=== PATIENT | female | born 1990 | race Caucasian/White ===

== ENCOUNTER 2017-05-08 11:56 | Inpatient (IN) | payer OTHER ==
[~2017-05-08] VITALS: Ht 157.5 cm; Wt 99.0 kg
[~2017-05-08 11:56] MED LIST: IBUP-1542 PO; PREN-39 PO
[2017-05-08 12:00] VITALS: Ht 157.5 cm; Wt 99.0 kg
[2017-05-08 12:05] VITALS: BP 138/83; PULSE 95; RESP 18
[2017-05-08 13:23] LABS: ADD UMIC YES; UR BILIRUBIN (Dip) 1+ (NEGATIVE); UR BLOOD (Dip) 3+ (NEGATIVE); UR CLARITY SLIGHTLY CLOUDY (CLEAR); UR COLOR YELLOW (YELLOW); UR GLUCOSE (Dip) NEGATIVE (NEGATIVE); UR KETONES (Dip) NEGATIVE (NEGATIVE); UR LEUKOCYTE ESTERASE (Dip) 1+ (NEGATIVE); UR NITRITE (Dip) NEGATIVE (NEGATIVE); UR TOTAL PROTEIN (Dip) 2+ (NEGATIVE); UR UROBILINOGEN (Dip) 1.0 E.U./dL (0.1-1.0)
--- NOTE | 2017-05-08 13:31 | RADRPT ---
PROCEDURE: US OB biophysical profile. CLINICAL INDICATION: decreased movements, vaginal bleeding TECHNIQUE: Multiple sonographic images of the pelvis were obtained. The images were reviewed on a PACS workstation. COMPARISON: No prior studies are available for comparison. FINDINGS: There is a single viable intrauterine gestation. Cardiac activity is present with 148 beats per min resighini. There is a vertex presentation. The placenta is anterior. There is no evidence of placental abruption. There is a normal amount of amniotic fluid with an BRAYAN = 12.2 cm. Biophysical profile: movement 2/2 tone 2/2. breathing 2/2 BRAYAN 2/2 Total 06/30 RPTAT: AA . IMPRESSION: Normal biophysical profile. . .Fabrice Wright MD, Date Time Electronically viewed and signed by .Fabrice Wright MD, MD on 05/08/2017 13:30 .S/
[2017-05-08 13:43] LABS: UR BACTERIA MODERATE; URINE RBCS >50 /HPF (0)
[2017-05-08 13:52] LABS: ICTOTEST NEGATIVE (NEGATIVE)
[2017-05-08] MEDS ORDERED: METHYLERGONOVINE 0.2 MG INJ IM PRN (14:30)
[2017-05-08] MEDS ORDERED: OXYTOCIN 30 UNITS/LR 500 ML IV PRN (14:30)
[2017-05-08] MEDS ORDERED: BUTORPHANOL 2 MG INJ IV PRN ×2 (14:30)
[2017-05-08] MEDS ORDERED: CARBOPROST 250 MCG INJ IM PRN (14:30)
[2017-05-08] MEDS ORDERED: LIDOCAINE 1% (MPF) 30 ML INJ INJ PRN (14:30)
[2017-05-08] MEDS ORDERED: OXYTOCIN 30 UNITS/LR 500 ML IV SCH ×3 (14:30→21:00)
[2017-05-08] MEDS ORDERED: LACTATED RINGER'S 1,000 ML IV PRN (14:30)
[2017-05-08] MEDS ORDERED: MISOPROSTOL 200 MCG TAB PR PRN (14:30)
[2017-05-08] MEDS: LACTATED RINGER'S 1,000 ML IV SCH ×2 (15:00→20:00)
[2017-05-08 15:27] LABS: ADD SCAN DIFF NO
[2017-05-08 15:29] LABS: BASOPHILS % 0.2 % (0.0-2.0); EOSINOPHILS % 0.1 % (0.0-7.0); HEMATOCRIT 37.6 % (37.0-47.0); HEMOGLOBIN 12.4 g/dl (12.0-16.0); LYMPHOCYTES # 2.4 10^3/ul (0.8-2.9); LYMPHOCYTES % 16.4 % (15.0-51.0); MEAN CORPUSCULAR HEMOGLOBIN 27.9 pg (29.0-33.0); MEAN CORPUSCULAR VOLUME 84.7 fl (82.0-101.0); MEAN PLATELET VOLUME 12.3 fl (7.4-10.4); MONOCYTE # 0.8 10^3/ul (0.3-0.9); MONOCYTES % 5.3 % (0.0-11.0); NEUTROPHIL # 11.2 10^3/ul (1.6-7.5); NEUTROPHILS % 77.3 % (39.0-77.0); PLATELET COUNT 248 10^3/UL (140-415); RED BLOOD COUNT 4.44 10^6/ul (4.20-5.40); RED CELL DISTRIBUTION WIDTH 15.4 % (11.5-14.5); WHITE BLOOD COUNT 14.5 10^3/ul (4.8-10.8)
[2017-05-08 15:46] LABS: INR 0.96; PROTIME 12.8 Sec (12.2-14.2)
[2017-05-08 15:47] LABS: PARTIAL THROMBOPLASTIN TIME 27.7 Sec (25.0-35.0)
[2017-05-08] MEDS ORDERED: FENTAnyl 2MCG/ML-ROPIV 0.2% 100 ML BAG EPI SCH (19:00)
[2017-05-08] MEDS ORDERED: ONDANSETRON 4 MG INJ IV PRN (19:00)
[2017-05-08] MEDS ORDERED: NALOXONE (0.4 MG/ML) INJ IV PRN (19:00)
[2017-05-08] MEDS ORDERED: DIPHENHYDRAMINE 50 MG INJ IV PRN (19:00)
[2017-05-08] MEDS ORDERED: ACETAMINOPHEN 325 MG TAB PO PRN (21:00)
--- NOTE | 2017-05-09 02:08 | DELSUM ---
Delivery Summary A-C Datetime Report Generated by CPN: 05/09/2017 02:08 DELIVERY PERSONNEL Prosthetic Technician: Long, Sandra MATERNAL INFORMATION Delivery Anesthesia: Epidural Medications in Delivery: OXYTOCIN 30UNITS IN 500ML Estimated Blood Loss (ml): 175 Placenta Cultured: No Maternal Complications: None LABOR SUMMARY EDC: 05/23/2017 00:00 No. Babies in Womb: 1 Attempted: No Labor Anesthesia: Epidural LABOR INFORMATION Reason for Induction: Not Applicable Onset of Labor: 05/08/2017 03:00 Cervical Ripening Agents: Other Cervical Ripening Agents: Other Oxytocin: N/A Group B Beta Strep: Negative Antibiotics # of Doses: 0 Steroids Given: None Reason Steroids Not Administered: Not Applicable MEMBRANES Membranes Rupture Method: Artificial Rupture of Membranes: 05/08/2017 19:38 Length of Rupture (hr): 5.98 Amniotic Fluid Color: Clear Amniotic Fluid Amount: Moderate Amniotic Fluid Odor: None STAGES OF LABOR Stage 3 hr: 0 Stage 3 min: 8 Total Time in Labor hr: 22 Total Time in Labor min: 45 VAGINAL DELIVERY Episiotomy: None Laceration Extension: N/A Laceration Type: None Laceration Repair: No Initial Vag Sponge Count: 10 Final Vag Sponge Count: 10 Initial Vag Sharps Count: 1 Final Vag Sharps Count: 1 Sponge Count Correct: Yes Sharps Count Correct: Yes BABY A INFORMATION Delivery Date/Time: 05/09/2017 01:37 Method of Delivery: Vaginal Born in Route : No : N/A Forceps: N/A Vacuum Extraction: N/A Shoulder Dystocia : N/A SHOULDER DYSTOCIA BABY A Delivery Date/Time: 05/09/2017 01:37 PRESENTATION/POSITION BABY A Presentation: Cephalic Presentation: Cephalic Cephalic Presentation: Vertex Vertex Position: Left Occipital Anterior Breech Presentation: N/A PLACENTA INFORMATION BABY A Placenta Delivery Time : 05/09/2017 01:45 Placenta Method of Delivery: Spontaneous Placenta Status: Delivered SCORES BABY A Heart Rate 1 min: >100 bpm Resp Effort 1 min: Good Cry Reflex Irritability 1 min: Cough/Sneeze/Pulls Away Muscle Tone 1 min: Active Motion Color 1 min: Blue/Pale Resuscitation Effort 1 min: Tactile Stimulation SCORE 1 MIN: 8 Heart Rate 5 min: >100 bpm Resp Effort 5 min: Good Cry Reflex Irritability 5 min: Cough/Sneeze/Pulls Away Muscle Tone 5 min: Active Motion Color 5 min: Body Flowella, Extremit Blue Resuscitation Effort 5 min: Tactile Stimulation SCORE 5 MIN: 9 INFANT INFORMATION BABY A Gestational Age at Delivery: 38.0 Gestational Status: Early Term- 37- 38.6 Weeks Outcome : Liveborn Condition : Stable Sex: Male IDENTIFICATION/MEDS BABY A ID Band Number: [id number] ID Band Location: Right Leg; Left Arm Sensor Applied: Yes Sensor Number: [id number] Sensor Location : Cord Clamp Vitamin K Given : Not Given Erythromycin Given: Not Given WEIGHT/LENGTH BABY A Birthweight (gm): 3485 Infant Weight (lb): 7 Weight (oz): 11 Infant Length (in): 20.00 Length (cm): 50.80 CORD INFORMATION BABY A No. Cord Vessels: 3 Nuchal Cord : Around Neck x1, Loose Cord Blood Taken: Yes Infant Suction: Mouth; Nose ASSESSMENT BABY A Complications: None Physical Findings at Delivery: Within Normal Limits; Other Physical Findings- Other: SKIN TEAR ON LEFT WRIST AND TAG ON LEFT HAND Respirations: Appears Normal Infant Care By: MEAGAN SHEIKH RN CHARGE Transferred To: Remains with Mother
--- NOTE | 2017-05-09 02:10 | HP ---
Date/Time of Note Date/Time of Note DATE: 05/09/17 TIME: 02:08 OB - History Hx of Present Free Text/Dictation iup 37+ in labor. no PMH no psh : 5 Para: 4 Care: Good Care Ultrasounds: Normal mid trimester US Obstetrical Complications: None Medical Complications: None Past Family/Social History * Past Medical, Surgical, Family and Obstetric Histories reviewed from chart. GBS Status: Negative OB Admission Exam Vital Signs Vital Signs Vital Signs Date Time Temp Pulse Resp B/P Pulse Ox O2 Delivery O2 Flow Rate FiO2 05/08/17 12:05 98.5 95 18 138/83 Room Air Last 72 hours Lab Results CBC & BMP 05/08/17 14:45 OB Assessment/Plan Reason for admission: active labor Plan: Expectant Management YVETTE LOVELACE MD May 09, 2017 02:10
--- NOTE | 2017-05-09 02:11 | LDN ---
Date/Time of Note Date/Time of Note DATE: 05/09/17 TIME: 02:10 Delivery Summary Weeks of Gestation 37+ Placenta Delivered: Spontaneously Meconium: none Episiotomy: No Anesthesia type: Epidural Sponge & Needle done & correct: Yes All needle counts correct: Yes Any foreign bodies felt in the: No Problems: Infant Delivery Information Suctioning Nose & mouth suctioned at kranthi: Yes Umbilical Cord Umbilical cord with: 3 Vessels Cord presentations: nuchal cord Cord Blood was obtained: Yes YVETTE LOVELACE MD May 09, 2017 02:11
[2017-05-09 04:15] VITALS: BP 121/70; PULSE 98; RESP 19
[2017-05-09] MEDS ORDERED: MISOPROSTOL 200 MCG TAB PR PRN (05:00)
[2017-05-09] MEDS ORDERED: DIPHENHYDRAMINE 25 MG CAP PO PRN (05:00)
[2017-05-09] MEDS ORDERED: CARBOPROST 250 MCG INJ IM PRN (05:00)
[2017-05-09] MEDS: ACETAMINOPHEN/CODEINE #3 TAB PO PRN ×3 (05:00→14:10)
[2017-05-09] MEDS ORDERED: OXYTOCIN 30 UNITS/LR 500 ML IV PRN (05:00)
[2017-05-09] MEDS ORDERED: METHYLERGONOVINE 0.2 MG INJ IM PRN (05:00)
[2017-05-09] MEDS ORDERED: BENZOCAINE 20% 56 ML SPRAY TOP PRN (05:00)
[2017-05-09] MEDS ORDERED: DIBUCAINE 1% 30 GM OINT PR PRN (05:00)
[2017-05-09] MEDS ORDERED: WITCH HAZEL/GLYCERIN PAD PR PRN (05:00)
[2017-05-09] MEDS ORDERED: LANOLIN 7 GM TUBE TOP PRN (05:00)
[2017-05-09] MEDS: OXYTOCIN 30 UNITS/LR 500 ML IV SCH ×2 (05:06→08:39)
[2017-05-09] MEDS: IBUPROFEN 600 MG TAB PO SCH ×4 (05:59→23:56)
[2017-05-09] MEDS: LACTATED RINGER'S 1,000 ML IV* SCH ×2 (06:36→12:13)
[2017-05-09 08:30] VITALS: BP 107/61; PULSE 80; RESP 18
[2017-05-09] MEDS: SENNA/DOCUSATE NA (8.6MG/50MG) TAB PO SCH ×2 (11:22→21:01)
[2017-05-09 16:36] VITALS: BP 135/78; PULSE 87; RESP 19
[2017-05-09 19:45] VITALS: BP 141/84; PULSE 85; RESP 20
[2017-05-10] VITALS: BP 126/57; PULSE 78; RESP 18
[2017-05-10 04:00] VITALS: BP 119/73; PULSE 82; RESP 18
[2017-05-10] MEDS: IBUPROFEN 600 MG TAB PO SCH ×4 (05:39→23:43)
[2017-05-10] MEDS: SENNA/DOCUSATE NA (8.6MG/50MG) TAB PO SCH ×2 (08:10→21:16)
[2017-05-10 08:30] VITALS: BP 127/79; PULSE 83; RESP 18
--- NOTE | 2017-05-10 09:03 | QN ---
Documentation Comment PPD#1- Laborist Rounding Note Pt doing well. Mary POs, ambulating and voiding w/o difficulty. Bottlefeeding VS 98.4 119/73 82 18 Gen: well appearing, NAD CV: RRR, nl s1s2 Resp: CTAB Abd: soft, NT, FF at umbilicus Alie: pad w/o stain (recently changed) Ext: symmetric, trace BLE edema, nontender Labs: Admission Hgb 12.4 -> EBL 175ml -> PPD#1 Hgb pending A/P: PPD#1 progressing towards milestones -continue routine care -f/up CBC -anticipate d/c home PPD#2 -will need to discuss binding breasts prior to d/c home if desires bottlefeeding only MICHAEL KATE MD May 10, 2017 09:03
[2017-05-10] MEDS: ACETAMINOPHEN/CODEINE #3 TAB PO PRN (16:06)
[2017-05-10 16:39] VITALS: BP 132/90; PULSE 81; RESP 19
[2017-05-10 19:45] VITALS: BP 143/83; PULSE 88; RESP 18
[2017-05-11 04:30] VITALS: BP 120/75; PULSE 86; RESP 18
[2017-05-11] MEDS: IBUPROFEN 600 MG TAB PO SCH ×2 (05:49→11:57)
[2017-05-11 07:44] VITALS: BP 135/85; PULSE 90; RESP 20
[2017-05-11] MEDS: SENNA/DOCUSATE NA (8.6MG/50MG) TAB PO SCH (09:13)
[2017-05-11] MEDS: ACETAMINOPHEN/CODEINE #3 TAB PO PRN (09:13)
--- NOTE | 2017-05-11 11:12 | DS ---
Date/Time of Note Date/Time of Note DATE: 05/11/17 TIME: 11:11 Obstetrical Discharge Record Final Diagnosis Final Diagnosis: Term delivered Vaginal Delivery Obstetrical Delivery: Spontaneous Complications Gestational Age at Rupture Current Medications Medications (Trade) Dose Ordered Sig/Ancelmo Route PRN Reason Start Time Stop Time Status Last Admin Dose Admin Lactated Ringer's (Lr) 1,000 ml @ 125 mls/hr Q8H IV 05/08/17 14:23 05/09/17 04:42 DC 05/08/17 20:00 Butorphanol Tartrate (Stadol) 1 mg Q2H PRN IV PAIN 05/08/17 14:30 05/09/17 04:42 DC Butorphanol Tartrate (Stadol) 2 mg Q2H PRN IV PAIN 05/08/17 14:30 05/09/17 04:42 DC Lidocaine 30 ml 30 ml ONCE PRN INJ EPISIOTOMY/TEARING 05/08/17 14:30 05/09/17 04:42 DC Oxytocin/Lactated Ringer's 500 ml @ 125 mls/hr ONCE -MAY REPEAT X1 IV 05/08/17 14:30 05/09/17 04:42 DC 05/09/17 02:57 Oxytocin/Lactated Ringer's 500 ml @ 125 mls/hr ONCE IV 05/08/17 14:30 05/09/17 04:42 DC Lactated Ringer's 1,000 ml @ 2,000 mls/hr Q30M PRN IV PRE-EPIDURAL BOLUS 05/08/17 14:30 05/09/17 04:42 DC 05/08/17 18:23 Oxytocin/Lactated Ringer's 500 ml @ 0 mls/hr ONCE PRN IV For Hemorrhage Management 05/08/17 14:30 05/09/17 04:42 DC Methylergonovine Maleate (Methergine) 0.2 mg ONCE PRN IM VAGINAL BLEEDING 05/08/17 14:30 05/09/17 04:42 DC Carboprost Tromethamine (Hemabate) 250 mcg ONCE PRN IM VAGINAL BLEEDING 05/08/17 14:30 05/09/17 04:42 DC Misoprostol (Cytotec) 1,000 mcg ONCE PRN NC VAGINAL BLEEDING 05/08/17 14:30 05/09/17 04:42 DC Naloxone HCl (Narcan) 0.1 mg Q2M PRN IV FOR RESP RATE 8 OR LESS 05/08/17 19:00 05/09/17 04:42 DC Diphenhydramine HCl (Benadryl) 25 mg Q6H PRN IV ITCHING 05/08/17 19:00 05/09/17 04:42 DC Ondansetron HCl (Zofran Inj) 4 mg Q6H PRN IV NAUSEA AND/OR VOMITING 05/08/17 19:00 05/09/17 04:42 DC Fentanyl/ Ropivacaine 100 ml EPIDURAL INFUSION EPI 05/08/17 19:00 05/09/17 04:42 DC Acetaminophen 650 mg 650 mg Q4H PRN PO PAIN AND OR ELEVATED TEMP 05/08/17 21:00 05/09/17 04:42 DC 05/08/17 21:18 Oxytocin/Lactated Ringer's 500 ml @ 0 mls/hr Q0M IV 05/08/17 21:00 05/09/17 04:42 DC 05/08/17 21:20 Oxytocin/Lactated Ringer's 500 ml @ 125 mls/hr Q4H IV 05/09/17 04:39 05/09/17 12:38 DC 05/09/17 05:06 Lactated Ringer's (Lr) 1,000 ml @ 125 mls/hr Q8H IV* 05/09/17 04:39 05/09/17 14:43 DC 05/09/17 06:36 Ibuprofen (Motrin) 600 mg Q6 PO 05/09/17 06:00 05/11/17 05:49 Acetaminophen/ Codeine Phosphate (Tylenol No.3) 1 tab Q4H PRN PO PAIN LEVEL 1-5 05/09/17 05:00 05/09/17 14:10 Acetaminophen/ Codeine Phosphate (Tylenol No.3) 2 tab Q4H PRN PO PAIN LEVEL 6-10 05/09/17 05:00 05/11/17 09:13 Diphenhydramine HCl (Benadryl) 25 mg Q6H PRN PO PRURITUS 05/09/17 05:00 Senna/Docusate Sodium (Senokot-S) 1 tab BID PO 05/09/17 09:00 05/11/17 09:13 Witch Jessica/ Glycerin (Tucks Pads) 1 pad BEDSIDE MEDICATION PRN NC HEMORRHOID/EPISIOTMY PAIN 05/09/17 05:00 05/09/17 05:01 Benzocaine (Dermoplast Novelty) 1 spray BEDSIDE MEDICATION PRN TOP HEMORRHOID/EPISIOTMY PAIN 05/09/17 05:00 05/09/17 05:01 Dibucaine (Nupercainal) 1 applic BEDSIDE MEDICATION PRN NC HEMORRHOID/EPISIOTMY PAIN 05/09/17 05:00 Lanolin 1 applic 1 applic BEDSIDE MEDICATION PRN TOP BEDSIDE FOR ARNAUD TO NIPPLES 05/09/17 05:00 05/09/17 05:02 Oxytocin/Lactated Ringer's 500 ml @ 0 mls/hr ONCE PRN IV For Hemorrhage Management 05/09/17 05:00 Methylergonovine Maleate (Methergine) 0.2 mg ONCE PRN IM VAGINAL BLEEDING 05/09/17 05:00 Carboprost Tromethamine (Hemabate) 250 mcg ONCE PRN IM VAGINAL BLEEDING 05/09/17 05:00 Misoprostol (Cytotec) 1,000 mcg ONCE PRN NC VAGINAL BLEEDING 05/09/17 05:00 Condition on Discharge Physical Assessment Voiding: Yes Bowel Movement: Yes Fundus: Firm Calf Tenderness: Yes Patient Condition: Good PRICILA SILVERIO MD May 11, 2017 11:12
== END 2017-05-11 14:25 | disposition home or self-care (01) | DRG 775 ==
LOC: OBT 11:56 → L-D 11:58 → OBT 14:28 → L-D 14:30 → PP1 05-09 04:19
PROC: 10E0XZZ Delivery of Products of Conception, External Approach (ICD-10-PCS; principal; 2017-05-09)
DX: O69.81X0 Labor and delivery complicated by cord around neck, without compression, not applicable or unspecified (principal); Z68.39 Body mass index [BMI] 39.0-39.9, adult; O99.213 Obesity complicating pregnancy, third trimester; Z37.0 Single live birth; Z3A.37 37 weeks gestation of pregnancy
CPT/HCPCS: 62319; 76818; 81001; 85025; 85610; 85730; 86592; 86900; 86901; 87340; 99464; G0463; J2590; J3010; J7120

== ENCOUNTER 2018-09-17 15:50 | Day surgery (SDC) | END 2018-09-17 20:38 | disposition home or self-care (01) ==